=== PATIENT | female | born 1960 | race Caucasian/White ===

== ENCOUNTER → 2021-11-21 | Outpatient (CLI) | payer MEDICARE, MEDICAID | LOC: COL.RAD 11:40 | DX: N95.0 Postmenopausal bleeding (principal) ==

== ENCOUNTER → 2021-12-06 | Outpatient (CLI) | payer MEDICARE, MEDICAID | LOC: COL.RAD 07:56 | DX: M17.12 Unilateral primary osteoarthritis, left knee (principal); N95.0 Postmenopausal bleeding; T66.XXXS Radiation sickness, unspecified, sequela; E66.01 Morbid (severe) obesity due to excess calories; Z85.79 Personal history of other malignant neoplasms of lymphoid, hematopoietic and related tissues; S72.092A Other fracture of head and neck of left femur, initial encounter for closed fracture; Z96.651 Presence of right artificial knee joint | CPT/HCPCS: Q9967 ==

== ENCOUNTER → 2022-02-06 | Outpatient (CLI) | payer MEDICARE, MEDICAID ==
[2022-02-06 14:03] LABS: BASO # 0.1 K/mm3 (0.0-0.2); BASO % 0.9 % (0.0-2.0); EOS # 0.3 K/mm3 (0.0-0.7); EOS % 3.7 % (0.0-4.0); GRAN # 4.4 K/mm3 (1.4-6.5); GRAN % 65.3 % (42.2-75.2); HEMATOCRIT 38.8 % (37.0-47.0); HEMOGLOBIN 12.1 g/dl (12.5-16.0); LYMPH # 1.6 K/mm3 (1.2-3.4); MEAN CELL VOLUME 92 fl (80.0-100.0); MEAN CORPUSCULAR HEMOGLOBIN 29 pg (27-31); MEAN CORPUSCULAR HGB CONC 31 g/dl (33.0-37.0); MEAN PLATELET VOLUME 9.8 fl (7.4-10.4); MONO # 0.4 K/mm3 (0.1-0.6); MONO % 5.7 % (1.7-9.3); PLATELET COUNT 296 K/mm3 (130-400); REDCELL DISTRIBUTION WIDTH-CV 15.2 % (11.5-14.5)
== END ==
LOC: ZCOL.LAB 13:55
PROVIDERS: Internal Medicine
DX: I82.409 Acute embolism and thrombosis of unspecified deep veins of unspecified lower extremity (principal); O64.2XX0 Obstructed labor due to face presentation, not applicable or unspecified; Z74.01 Bed confinement status

== ENCOUNTER → 2022-02-07 | Outpatient (CLI) | payer MEDICARE, MEDICAID | LOC: COL.VAS 10:59 | DX: R22.43 Localized swelling, mass and lump, lower limb, bilateral (principal); M79.605 Pain in left leg; M79.604 Pain in right leg; R79.1 Abnormal coagulation profile ==

== ENCOUNTER → 2022-03-20 | Outpatient (CLI) | payer MEDICARE, MEDICAID | LOC: MC.RAD 14:15 | DX: Z12.31 Encounter for screening mammogram for malignant neoplasm of breast (principal) ==

== ENCOUNTER → 2022-10-14 | Outpatient (CLI) | payer MEDICARE, MEDICAID ==
[~2022-10-14] MED LIST: FERREX 150150 MG PO; GENTLE LAXATIVE10 MG RC; GOOD NEIGH1200 MG/15; IMODIUM 2MG CAPS2 MG PO; LEXAPRO20 MG; MELATONIN5 M1 SL; MOTRIN 200200 MG/TAB PO; MYCOSTATIN100000 U/1 TP; MYLANTA COAT-C355 ML PO; NASACORT OTC NS; PREPARATION H GENERI TOP; PREVIDENT DT; PRILOSEC 20MG20 MG PO; PROBIOTIC BLEN1 EACH PO; STOOL SOFTENER100 M2 PO; TRIAD WOUND CAR1 GEL TOP; TYLENOL 325MG325 MG PO; TYLENOL SU650 MG/SUP RC; ZOFRAN 4MG T4 MG/TAB PO; ZYRTEC 10MG10 MG PO
== END ==
LOC: COL.RAD 10-03 11:15
DX: R93.89 Abnormal findings on diagnostic imaging of other specified body structures (principal); E66.01 Morbid (severe) obesity due to excess calories; Z99.3 Dependence on wheelchair; S72.001A Fracture of unspecified part of neck of right femur, initial encounter for closed fracture; Z92.3 Personal history of irradiation; N95.0 Postmenopausal bleeding

== ENCOUNTER → 2023-08-22 | Outpatient (CLI) | payer MEDICAID | LOC: COL.RAD 10:54 | DX: N00-N99 Diseases of the genitourinary system (principal); R93.89 Abnormal findings on diagnostic imaging of other specified body structures ==

== ENCOUNTER → 2023-11-05 | Outpatient (REF) | payer MEDICAID | LOC: ZCOL.LAB 11:32 | PROVIDERS: Physician Assistant | DX: D50.9 Iron deficiency anemia, unspecified (principal) ==